=== PATIENT | female | born 1960 | race African-American/Black ===

== ENCOUNTER 2016-11-01 15:39 | Observation (INO) | payer OTHER ==
[~2016-11-01] VITALS: Ht 170.2 cm; Wt 87.0 kg
[2016-11-01] VITALS (7 sets, daily range): BP systolic 120–150; BP diastolic 58–83; PULSE 69–92; RESP 16–20; TEMP 96.5–99.3; O2SAT 98–99
[~2016-11-01 15:39] MED LIST: ASA 81; ERGO50000 PO; LISI-360 PO; TAB-TAB PO
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
[2016-11-01] MEDS ORDERED: SODIUM CHLORIDE 0.9% FLUSH 10 ML FLUSH IVF PRN (16:30)
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
[2016-11-01 17:02] LABS: AUTOMATED NEUTROPHIL # 4.2 TH/MM3 (1.8-7.7); BASOPHIL # 0.1 TH/MM3 (0-0.2); BASOPHIL % 0.7 % (0.0-2.0); EOSINOPHIL # 0.1 TH/MM3 (0-0.4); EOSINOPHIL % 1.6 % (0.0-4.0); HEMATOCRIT 41.1 % (35.0-46.0); HEMO FLAGS DIFF FINAL; LYMPH % 35.5 % (9.0-44.0); LYMPHOCYTE # 2.7 TH/MM3 (1.0-4.8); MEAN CELL VOLUME 91.5 FL (80.0-100.0); MEAN CORPUSCULAR HGB CONC 33.8 % (32.0-36.0); MONO % 6.7 % (0.0-8.0); NEUT % 55.5 % (16.0-70.0); PLATELET COUNT 295 TH/MM3 (150-450); RED BLOOD COUNT 4.49 MIL/MM3 (4.00-5.30); RED CELL DISTRIBUTION WIDTH 14.1 % (11.6-17.2); WHITE BLOOD COUNT 7.6 TH/MM3 (4.0-11.0)
[2016-11-01 17:11] LABS: APTT (PATIENT) 24.2 SEC (24.3-30.1); INTERNATIONAL NORMALIZED RATIO 0.9 RATIO; PROTHROMBIN TIME - PATIENT 10.1 SEC (9.8-11.6)
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
[2016-11-01 17:44] LABS: ALKALINE PHOSPHATASE 75 U/L (45-117); ALT (GPT) 21 U/L (10-53); ANION GAP 7 MEQ/L (5-15); AST (GOT) 18 U/L (15-37); BICARBONATE 30.5 MEQ/L (21.0-32.0); BLOOD UREA NITROGEN 13 MG/DL (7-18); CHLORIDE 108 MEQ/L (98-107); GLOMERULAR FILTRATION RATE 54 ML/MIN (>89); MAGNESIUM 2.3 MG/DL (1.5-2.5); POTASSIUM 4.6 MEQ/L (3.5-5.1); SODIUM (NA) 145 MEQ/L (136-145); TOTAL BILIRUBIN ADULT 0.3 MG/DL (0.2-1.0)
[2016-11-01 17:49] LABS: CREATINE KINASE 93 U/L (26-192)
[2016-11-01] MEDS ORDERED: LISI10TA3 PO (18:45)
[2016-11-01] MEDS ORDERED: ACETAMINOPHEN 500 MG CPLT PO PRN (18:45)
[2016-11-01] MEDS ORDERED: MULT1TAB84 PO (18:45)
[2016-11-01] MEDS ORDERED: VITATAB56 PO (18:45)
[2016-11-01] MEDS ORDERED: SODIUM CHLORIDE 0.9% FLUSH 10 ML FLUSH IV FLUSH PRN (18:45)
[2016-11-01] MEDS ORDERED: ASPI81CH CHEW (18:45)
[2016-11-01 20:28] LABS: CREATINE KINASE 71 U/L (26-192)
[2016-11-01] MEDS ORDERED: SODIUM CHLORIDE 0.9% FLUSH 10 ML FLUSH IV FLUSH SCH (21:00)
[2016-11-01 23:11] LABS: CREATINE KINASE 105 U/L (26-192)
[2016-11-01 23:29] LABS: CKMB 0.6 NG/ML (0.5-3.6)
[2016-11-02] VITALS: BP 131/63; PULSE 63; PULSE 70; RESP 18; TEMP 98; O2SAT 97
[2016-11-02 03:48] VITALS: PULSE 74
[2016-11-02 04:00] VITALS: BP 128/61; PULSE 77; RESP 20; TEMP 98.2; O2SAT 97
[2016-11-02 07:43] VITALS: O2SAT 98
[2016-11-02 08:00] VITALS: BP 130/72; PULSE 67; RESP 18; TEMP 98.9; O2SAT 98
[2016-11-02 08:32] VITALS: BP 134/66; PULSE 65; RESP 18; TEMP 97.4; O2SAT 95
--- NOTE | 2016-11-02 13:16 | EKG ---
Date Performed: 11/01/2016 Time Performed: 16:27:00 PTAGE: 56 years EKG: Sinus rhythm NORMAL ECG NO PREVIOUS TRACING DOCTOR: Onel Gonzalez Interpretating Date/Time 11/02/2016 13:14:43
--- NOTE | 2016-11-02 13:17 | EKG ---
Date Performed: 11/01/2016 Time Performed: 19:37:42 PTAGE: 56 years EKG: Sinus rhythm WITH SINUS ARRHYTHMIA NORMAL ECG PREVIOUS TRACING : 11/01/2016 16.27 Since previous tracing, no significant change noted DOCTOR: Onel Gonzalez Interpretating Date/Time 11/02/2016 13:15:47
--- NOTE | 2016-11-02 13:19 | EKG ---
Date Performed: 11/01/2016 Time Performed: 22:27:02 PTAGE: 56 years EKG: Sinus rhythm NONSPECIFIC T-WAVE ABNORMALITY BORDERLINE ECG INTERPRETATION BASED ON A DEFAULT AGE OF 40 YEARS Sinc e PREVIOUS TRACING , no significant change noted DOCTOR: Onel Gonzalez Interpretating Date/Time 11/02/2016 13:17:23
== END 2016-11-02 10:05 | disposition left against medical advice (07) ==
LOC: NEPD 15:39 → NEDA 18:34 → NEPGCP 21:08
DX: R51 Headache (principal); R07.9 Chest pain, unspecified; I10 Essential (primary) hypertension; D64.9 Anemia, unspecified; Z79.82 Long term (current) use of aspirin; V89.2XXA Person injured in unspecified motor-vehicle accident, traffic, initial encounter
CPT/HCPCS: 70450; 71020; 80053; 82550; 82552; 83735; 84484; 85025; 85610; 85730; 93005; 99285; G0378